=== PATIENT | male | born 1990 | race Caucasian/White ===

== ENCOUNTER → 2021-05-15 | Outpatient (CLI) | payer OTHER ==
[~2021-05-15] MED LIST: AMOXICILLIN875 MG PO; FLOMAX 0.4 MG0.4 MG PO; IBU600 MG PO; PERCOCET 5-3251 EACH PO
== END ==
LOC: KOH-I 14:36
DX: M25.511 Pain in right shoulder (principal)
CPT/HCPCS: 73030